=== PATIENT | male | born 1975 | race Hispanic/Latino ===

== ENCOUNTER 2016-10-04 17:04 | Emergency (ER) | payer OTHER ==
[~2016-10-04] VITALS: Ht 172.7 cm; Wt 70.9 kg
[2016-10-04 17:06] VITALS: BP 148/94; PULSE 74; RESP 16; O2SAT 98
--- NOTE | 2016-10-04 19:48 | ED.REPORT ---
HPI-Back Pain 40 and Over Date of Service Oct 04, 2016 ED Provider: Sam Washington DO A healthy 41 year old male presents to the ED with lumbar pain onset four days ago while lifting large boards at work. The pain radiates down his right leg. The patient denies leg numbness/weakness, loss of bladder control, or bowel incontinence. He has ambulated since the incident. The patient speaks [place] and his business development officer was translating. Nursing Notes Stated Complaint: LOW BACK PAIN Chief Complaint: Back Pain or Injury Nursing Notes Reviewed: Yes Allergies: Coded Allergies: No Known Allergies (Unverified Allergy, Unknown, 10/04/16) General Time Seen by MD: 18:00 Chief Complaint Lumbar pain Hx Obtained From: Patient Arrived By: Walk-in Sudden in Onset?: Yes Onset Occurred: 4 days ago Symptom Duration: Since onset Caused by: Lifting Location: : Spinal lumbar area Quality: Painful Radiation: : Right leg above knee Severity: Current: Moderate Severity: Maximum: Moderate Associated with: Denies: Fever, Inability to walk, Numbness both low ext, Weakness both lower ext Pertinent Negative: Relieved by nothing Recent Healthcare: No recent doctor visit Similar Sx Previous: No Past Medical History Past Medical History None reported Past Surgical History None reported Smoking History Unknown if Ever Smoker Social History Other Social History: Ambulatory Status Independent Review of Systems Constitutional: Denies: Fever Respiratory: Denies: Shortness of breath GI: Denies: Vomiting Musculoskeletal: Reports: Back pain (Lumbar), Extremity pain (Right leg) Neurologic: Denies: Bladder dysfunction, Numbness, Weakness Complete sys rev & neg: except as marked. Physical Exam Initial Vital Signs Vital Signs (First) Date Time Temp Pulse Resp B/P Pulse Ox O2 Delivery O2 Flow Rate FiO2 10/04/16 17:06 36.7 74 16 148/94 98 10/04/16 21:27 Room Air Initial VS: Reviewed Head / Eyes: Atraumatic, Normocephalic ENT: Conjunctiva normal, No scleral icterus Neck: Supple, Full range of motion Skin: Warm, Dry, No cyanosis Psychiatric: Mood/affect normal, Behavior normal, Normal thought content General/Constitutional: Awake, Alert, No acute distress Back: Full range of motion, Non-tender Pain with range of movement of right leg Lumbar radiculopathy No signs of cauda equina syndrome or myelopathy Neurologic: Oriented X3, Speech NL, No motor deficits, No sensory deficits, Reflexes equal bilat Lower extremity strength equal bilaterally Re-Eval/Medical Decision Re-Evaluation/Progress #1: Time of Eval: 20:37 Patient Status: Condition improved Re-Evaluation/Progress Note: Patient rechecked. Re-Evaluation/Progress #2: Time of Eval: 21:02 Patient Status: Condition improved Re-Evaluation/Progress Note: Patient rechecked. He is ambulating normally with no signs of cauda equina syndrome. Discussed with patient diagnosis and plan for discharge. Follow-up and return to the ER instructions given. Patient agrees with plan for care and all questions were addressed. Counseled Regarding: Diagnosis, Need for follow-up, When/why to return to ED Discharge & Departure Impression: Primary Impression: Low back pain Chronicity: acute Back pain laterality: right Sciatica presence: with sciatica Sciatica laterality: sciatica of right side Qualified Code: M54.41 - Lumbago with sciatica, right side Additional Impression: Lumbar radiculopathy Disposition: Home Discharge Condition All VS Reviewed: Yes Condition: Stable Patient Instructions: Low Back Strain (ED), Lumbar Radiculopathy (ED) Additional Instructions: Rest your back tonight. Do not drive. Take Naprosyn twice daily as directed for pain. Finish the Medrol dose pack. Call your primary care physician tomorrow to set up a follow-up. If symptoms persist or if you develop any neurologic symptoms you will need to have an MRI. Return if any problems or any worsening symptoms. Referrals: Scotty Otero MD (PCP) Scribe Attestation Portions of this note were transcribed by Tari Ruffin. I, Dr. Washington, personally performed the history, physical exam, and medical decision-making; I reviewed and confirmed the accuracy of the information in the transcribed note. Signed by: Cesia Sanderson, 10/04/2016, 22:08 copies to: Scotty Otero MD, Todd P DO Oct 04, 2016 19:48 TARI RUFFIN Oct 04, 2016 20:07
[2016-10-04] MEDS ORDERED: HYDROmorphone 1 mg/mL Inj IM ONE (20:05)
[2016-10-04] MEDS ORDERED: oxyCODONE-Acetamin 5-325 mg Tablet PO ONE (20:05)
[2016-10-04] MEDS ORDERED: Ketorolac 30 mg/mL 2 mL Inj IM ONE (20:05)
[2016-10-04] MEDS ORDERED: Dexamethasone 10 mg/mL Inj IM ONE (20:05)
[2016-10-04] MEDS ORDERED: _oxyCODONE/APAP 5-325 mg Tablet PO PRN (21:20)
[2016-10-04 21:27] VITALS: BP 122/76; RESP 18; O2SAT 58
== END 2016-10-04 21:28 | disposition home or self-care (01) ==
LOC: SED 17:04
DX: M54.41 Lumbago with sciatica, right side (principal); M54.16 Radiculopathy, lumbar region; X50.0XXA Overexertion from strenuous movement or load, initial encounter; Y93.89 Activity, other specified; Y92.69 Other specified industrial and construction area as the place of occurrence of the external cause; Y99.0 Civilian activity done for income or pay
CPT/HCPCS: 96372; 99284; J1100; J1170; J1885